=== PATIENT | female | born 1955 | race Caucasian/White ===

== ENCOUNTER 2017-02-15 08:28 | Emergency (ER) | payer OTHER ==
[2017-02-15 08:32] VITALS: BP 138/87; PULSE 78; TEMP 98.5; BMI 29.9
--- NOTE | 2017-02-15 09:12 | PDOC ---
History of Present Illness - History of Present Illness Initial Comments: 02/15/17 10:04 The patient is a 61 year old female, with a significant past medical history of hypertension, hyperlipidemia, NIDDM, migraines, and breast CA s/p lumpectomy and radiation therapy, who presents to the emergency department with intermittent dizziness, nausea, and lightheadedness since yesterday. She states she woke up from her sleep last night and felt the room spinning. The patient reports her dizziness is associated with nausea, but denies vomiting. She reports taking a zofran at home and denies nausea currently. She states her symptoms are exacerbated most when lying supine. She states she became very anxious after experiencing her symptoms, which she states only made it worse. She denies any recent ringing in her ears. The patient reports being seen in the ED last year for similar symptoms of dizziness, nausea, and lightheadedness. She reports seeing neurologist, Dr. Melgar, for her recurrent headaches a few years ago, but states she has not follow-up up since. She denies chest pain, shortness of breath, headache. She denies fever, chills, vomit, diarrhea and constipation. She denies dysuria, frequency, urgency and hematuria. She denies loss of appetite. She denies any vision changes, numbness/ tingling/weakness, headache Allergies: NKDA Social history: Denies toxic habits PCP - Dr. Mavis Ervin <Shreya Carlisle - Last Filed: 02/15/17 10:04> <Epifanio Armas - Last Filed: 02/15/17 18:12> - General Chief Complaint: Lightheaded Stated Complaint: DIZZINESS, NAUSEA Time Seen by Provider: 02/15/17 09:11 Past History <Shreya Carlisle - Last Filed: 02/15/17 10:04> - Past Medical History Diabetes: Yes (NIDDM) HTN: Yes Hypercholesterolemia: Yes - Surgical History Abdominal Surgery: Yes - Family Disease History Family Disease History: Heart Disease: Father - Immunization History Immunization Up to Date: Yes - Psycho/Social/Smoking Cessation Hx Anxiety: No Suicidal Ideation: No Smoking History: Never smoked Have you smoked in the past 12 months: No Hx Alcohol Use: No Drug/Substance Use Hx: No Substance Use Type: None <Epifanio Armas - Last Filed: 02/15/17 18:12> - Past Medical History Allergies/Adverse Reactions: Allergies Allergy/AdvReac Type Severity Reaction Status Date / Time No Known Allergies Allergy Verified 02/15/17 08:30 Home Medications: Ambulatory Orders Amlodipine/Valsartan [Exforge 10-320 mg Tablet] 1 tab PO DAILY 08/29/15 Empagliflozin [Jardiance] 25 mg PO DAILY 08/29/15 Metformin HCl [Glucophage -] 1,000 mg PO BID 08/29/15 Meclizine HCl 25 mg PO TID PRN #14 tablet 02/15/17 Meloxicam 0 mg PO DAILY 02/15/17 Ondansetron [Zofran Odt -] 4 mg GT QID PRN #20 tab.rapdis 02/15/17 Simvastatin [Zocor] 0 mg PO DAILY 02/15/17 Review of Systems - Review of Systems Able to Perform ROS?: Yes Comments:: 02/15/17 09:29 CONSTITUTIONAL: No reported: Fever, Chills, Diaphoresis, Generalized Weakness, Malaise, Loss of Appetite HEENT: No reported: Rhinorrhea, Nasal Congestion, Throat Pain, Throat Swelling, Difficulty Swallowing, Mouth Swelling, Ear Pain, Eye Pain, Visual Changes CARDIOVASCULAR: No reported: Chest Pain, Syncope, Palpitations, Irregular Heart Rate, Lightheadedness, Peripheral Edema RESPIRATORY: No reported: Cough, Shortness of Breath, SOB with Exertion, Orthopnea, Wheezing , Stridor, Hemoptysis GASTROINTESTINAL: (+) Nausea, No reported: Abdominal pain, Abdominal Distension, Vomiting, Diarrhea, Constipation, Melena, Hematochezia GENITOURINARY: No reported: Dysuria, Frequency, Urgency, Hesitancy, Flank Pain, Genital Pain MUSCULOSKELETAL: No reported: Myalgia, Arthralgia, Joint Swelling, Back pain, Neck Pain SKIN: No reported: Rash, Itching, Pallor HEMEATOLOGIC/IMMUNOLOGIC: No reported: Easy Bleeding, Easy Bruising, Lymphadenopathy, Frequent infections ENDOCRINE: No reported: Unexplained Weight Gain, Unexplained Weight Loss, Heat Intolerance , Cold Intolerance NEUROLOGIC: (+) Vertigo, Lightheadedness, No reported: Headache, Focal Weakness, Paresthesias, Unsteady Gait, Seizure, Mental Status Changes, Incontinence <Shreya Carlisle - Last Filed: 02/15/17 10:04> *Physical Exam - Vital Signs Last Vital Signs Temp Pulse Resp BP Pulse Ox 98.5 F 78 18 138/87 98 02/15/17 08:29 02/15/17 08:29 02/15/17 08:29 02/15/17 08:29 02/15/17 08:29 - Physical Exam Comments: 02/15/17 09:28 GENERAL: The patient is awake, alert, and fully oriented, Nontoxic - in no acute distress. HEAD: Normocephalic, atraumatic. EYES: extraocular movements intact, sclera anicteric, conjunctiva clear. ENT: Normal voice, Moist mucous membranes. NECK: Normal range of motion, supple LUNGS: Breath sounds equal, clear to auscultation bilaterally. No wheezes, no rhonchi, no rales. HEART: Regular rate and rhythm, without murmur, rub or gallop. ABDOMEN: Soft, nontender, normoactive bowel sounds. No guarding, no rebound.No CVA tenderness EXTREMITIES: Normal range of motion, no edema. No clubbing or cyanosis. No cords, erythema, or tenderness. PSYCH: Normal mood, normal affect. SKIN: Warm, Dry, normal turgor, NEURO: Mental status: The patient is oriented x3. Cranial nerves: Cranial nerves II through XII are intact Motor: The upper extremities are 5 over 5 in all muscle groups. The lower extremities are 5 over 5 in all muscle groups. No pronator drift. Sensation: Sensation is intact to light touch throughout. Neg romberg Cerebellar: Tgmzat-skjmem-bodf is normal in both upper extremities. Heel-knee- bazzi is normal in both lower extremities. Reflexes: 2+ and symmetric in the upper and lower extremities. Gait: Normal. Heel and toe walking are normal. Tandem gait is normal. <Shreya Carlisle - Last Filed: 02/15/17 10:04> - Vital Signs Last Vital Signs Temp Pulse Resp BP Pulse Ox 98.5 F 78 18 138/87 98 02/15/17 08:29 02/15/17 08:29 02/15/17 08:29 02/15/17 08:29 02/15/17 08:29 <Epifanio Armas - Last Filed: 02/15/17 18:12> Heart Score/ECG Review - ECG Impressions Comment:: 02/15/17 10:06 Twelve-lead EKG was performed and reviewed by me. There is normal sinus rhythm with a normal rate. rate of 82 The axis is normal. The intervals are normal. There are no ST or T wave abnormalities. <Epifanio Armas - Last Filed: 02/15/17 18:12> ED Treatment Course - LABORATORY CBC & Chemistry Diagram: 02/15/17 09:40 02/15/17 09:40 <Shreya Carlisle - Last Filed: 02/15/17 10:04> - LABORATORY CBC & Chemistry Diagram: 02/15/17 09:40 02/15/17 09:40 <Epifanio Armas - Last Filed: 02/15/17 18:12> Medical Decision Making - Medical Decision Making 02/15/17 09:23 61y F hx of breast ca s/p lumpetctomy,HTN, HLD, and NIDDM presents with complaint of intermittent dizziness/vertigo - typically when she is lying down associated with nausea, lasting for ~10 seconds at a time, w/o associated headache, vision changes, numbness/tinglign/weakness, cp, palpitations, abd pain , back pain, diarrhea/melena. on exam the pt has a normal exam including nonfocal neuro exam and no cerebellar findings suspect peripherial vertigo based on presentation, no signs of central vertigo will obtain blood work to r/o anemia, metabolic dernagement, ekg to scren for arrythmia will give fluids, yakov 02/15/17 11:00 pts labs unremarkable pt feeling improved no longer vertignious ambulating well w/o ataxia will d/c the pt with ENT fu - t states she had alittle ear pain a few days ago ? labrynthitis return precautions were discussed I discussed the physical exam findings, ancillary test results and final diagnoses with the patient. I answered all of the patient's questions. The patient was satisfied with the care received and felt comfortable with the discharge plan and treatment plan. The patient will call their primary care physician within 24 hours to arrange follow-up and will return to the Emergency Department with any new, persistent or worsening symptoms. <Epifanio Armas - Last Filed: 02/15/17 18:12> *DC/Admit/Observation/Transfer - Attestations Scribe Attestion: 02/15/17 09:29 Documentation prepared by Shreya Carlisle, acting as medical records field technician for Epifanio Armas MD, <Shreya Carlisle - Last Filed: 02/15/17 10:04> - Discharge Dispostion Admit: No <Epifanio Armas - Last Filed: 02/15/17 18:12> Diagnosis at time of Disposition: Vertigo - Discharge Dispostion Disposition: HOME Condition at time of disposition: Improved - Prescriptions Prescriptions: Meclizine HCl 25 mg PO TID PRN #14 tablet PRN Reason: Vertigo Ondansetron [Zofran Odt -] 4 mg GT QID PRN #20 tab.rapdis PRN Reason: Nausea - Referrals Referrals: Mavis Ervin MD [Primary Care Provider] - Best Brooks MD [Staff Physician] - - Patient Instructions Printed Discharge Instructions: DI for Vertigo Additional Instructions: Return to the emergency department immediately with ANY new, persistent or worsening symptoms incuding headache, persistent dizziness, vomiting, or other concerns. You MUST call and follow up with your doctor tomorrow for further evaluation of your symptoms. Results were discussed with you. Please make sure your doctor reviews the results of your emergency evaluation. Print Language: ETHIOPIAN
[2017-02-15] MEDS ORDERED: MECLIZINE HCL 25 MG TABLET (FP) PO ONE (09:13)
[2017-02-15] MEDS ORDERED: ONDANSETRON 4 MG/2 ML VIAL IVPB ONE (09:13)
[2017-02-15] MEDS ORDERED: SODIUM CHLORIDE 1,000 ML IV ONE (09:13)
[2017-02-15] MEDS ORDERED: MECLIZINE HCL 25 MG TABLET (FP) ONE (09:32)
[2017-02-15 09:57] LABS: EOSINOPHIL 2.7 % (0-4.5); MCH 30.8 pg (25.7-33.7); MCHC 34.2 g/dl (32.0-36.0); MEAN PLT VOLUME 8.5 fl (7.5-11.1); NEUTROPHILS 68.3 % (42.8-82.8); PLATELET COUNT 246 K/MM3 (134-434); RDW 12.4 % (11.6-15.6); WHITE BLOOD COUNT 8.7 K/mm3 (4.0-10.0)
[2017-02-15 10:27] LABS: ALBUMIN 3.9 g/dl (3.4-5.0); ALK PHOS 84 U/L (45-117); ANION GAP 9 (8-16); BILIRUBIN,TOTAL 0.5 mg/dL (0.2-1.0); CALCIUM 9.2 mg/dL (8.5-10.1); CO2 28 mmol/L (21-32); COCKROFT - GAULT 128.5115; CREATININE 0.6 mg/dL (0.55-1.02); GLUCOSE,RANDOM 224 mg/dL (74-106); SGOT/AST 11 U/L (15-37); SGPT/ALT 29 U/L (12-78); TOT PROT 7.3 g/dl (6.4-8.2)
--- NOTE | 2017-02-15 12:19 | EKG ---
Test Reason : Blood Pressure : / mmHG Vent. Rate : 082 BPM Atrial Rate : 082 BPM P-R Int : 140 ms QRS Dur : 088 ms QT Int : 388 ms P-R-T Axes : 030 008 026 degrees QTc Int : 453 ms NORMAL SINUS RHYTHM CANNOT RULE OUT ANTERIOR INFARCT (CITED ON OR BEFORE 15-FEB-2017) POOR R WAVE PROGRESSION ABNORMAL ECG WHEN COMPARED WITH ECG OF 10-MAR-2016 09:24, NO SIGNIFICANT CHANGE WAS FOUND Confirmed by JEFF WOOD MD ([id number]) on 02/15/2017 12:18:56 PM Referred By: Confirmed By:JEFF WOOD MD
== END 2017-02-15 11:12 | disposition home or self-care (01) ==
LOC: JER 08:28
PROC: 3E0337Z Introduction of Electrolytic and Water Balance Substance into Peripheral Vein, Percutaneous Approach (ICD-10-PCS; principal; 2017-02-15)
DX: R42 Dizziness and giddiness (principal); I10 Essential (primary) hypertension; E11.9 Type 2 diabetes mellitus without complications; Z79.84 Long term (current) use of oral hypoglycemic drugs; E78.00 Pure hypercholesterolemia, unspecified; Z85.3 Personal history of malignant neoplasm of breast
CPT/HCPCS: 36415; 80053; 85025; 93005; 93010; 96360; 99283-25

== ENCOUNTER 2017-04-22 01:39 | Emergency (ER) | payer OTHER ==
[2017-04-22 02:02] VITALS: BP 135/78; PULSE 88; TEMP 98.2; BMI 30.2
[2017-04-22] MEDS ORDERED: ONDANSETRON 4 MG/2 ML VIAL IVPUSH STA (02:33)
[2017-04-22] MEDS ORDERED: PANTOPRAZOLE SODIUM 40 MG in SODIUM CHLORIDE 100 ML IVPB ONE (02:33)
--- NOTE | 2017-04-22 02:33 | PDOC ---
History of Present Illness - General History Source: Patient Exam Limitations: No Limitations - History of Present Illness Initial Comments: 04/22/17 02:39 The patient is a 61-year-old female, with a significant past medical history of diabetes, who presents to the ED with abdominal pain, nausea, and vomiting. The pt developed this pain after eating at a [place] restaurant last night. Pts daughter also ate at the same restaurant and has some discomfort but not as bad as the pt. The patient denies any fever, chills, or diarrhea. The patient denies having any other symptoms. <Anali Galindo - Last Filed: 04/22/17 02:39> - General History Source: Patient <MarlenyJoão - Last Filed: 04/22/17 04:57> - General Chief Complaint: Pain Stated Complaint: ABDOMINAL PAIN Time Seen by Provider: 04/22/17 02:32 Past History <Anali Galindo - Last Filed: 04/22/17 02:39> - Past Medical History Diabetes: Yes (NIDDM) HTN: Yes Hypercholesterolemia: Yes - Surgical History Abdominal Surgery: Yes - Family Disease History Family Disease History: Heart Disease: Father - Immunization History Immunization Up to Date: Yes - Psycho/Social/Smoking Cessation Hx Anxiety: No Suicidal Ideation: No Smoking History: Unknown if ever smoked Have you smoked in the past 12 months: No Hx Alcohol Use: No Drug/Substance Use Hx: No Substance Use Type: None <João Farmer - Last Filed: 04/22/17 04:57> - Past Medical History Allergies/Adverse Reactions: Allergies Allergy/AdvReac Type Severity Reaction Status Date / Time No Known Allergies Allergy Verified 04/22/17 01:54 Home Medications: Ambulatory Orders Amlodipine/Valsartan [Exforge 10-320 mg Tablet] 1 tab PO DAILY 08/29/15 Empagliflozin [Jardiance] 25 mg PO DAILY 08/29/15 Metformin HCl [Glucophage -] 1,000 mg PO BID 08/29/15 Meclizine HCl 25 mg PO TID PRN #14 tablet 02/15/17 Meloxicam 0 mg PO DAILY 02/15/17 Ondansetron [Zofran Odt -] 4 mg GT QID PRN #20 tab.rapdis 02/15/17 Simvastatin [Zocor] 0 mg PO DAILY 02/15/17 Ondansetron [Zofran *Odt*] 4 mg SL TID #30 od.tablet 04/22/17 Review of Systems - Review of Systems Able to Perform ROS?: Yes Comments:: 04/22/17 02:39 CONSTITUTIONAL: Absent: fever, no chills, no fatigue EYES: Absent: visual changes ENT: Absent: ear pain, no sore throat CARDIOVASCULAR: Absent: chest pain, no palpitations RESPIRATORY: Absent: cough, no SOB GI: Present: abdominal pain, nausea, vomiting Absent: no constipation, no diarrhea GENITOURINARY: Absent: dysuria, no frequency, no hematuria MUSKULOSKELETAL: Absent: back pain, no arthralgia, no myalgia SKIN: Absent: rash NEURO: Absent: headache <Anali Galindo - Last Filed: 04/22/17 02:39> *Physical Exam - Vital Signs Last Vital Signs Temp Pulse Resp BP Pulse Ox 98.2 F 88 16 135/78 99 04/22/17 01:49 04/22/17 01:49 04/22/17 01:49 04/22/17 01:49 04/22/17 01:49 - Physical Exam Comments: 04/22/17 02:41 GENERAL: Well-appearing, well-nourished. +Moderate distress. HEENT: Normocephalic, atraumatic. PERRL, EOM intact. CARDIOVASCULAR: Normal S1, S2. Regular rate and rhythm. PULMONARY: Clear to auscultation bilaterally. ABDOMEN: Soft, non-distended, non-tender. EXTREMITIES: Normal ROM in all four extremities. No gross deformities. SKIN: Warm, dry. No rash NEUROLOGICAL: No focal neurological deficits. <Anali Galindo - Last Filed: 04/22/17 02:39> - Vital Signs Last Vital Signs Temp Pulse Resp BP Pulse Ox 98.2 F 88 16 135/78 99 04/22/17 01:49 04/22/17 01:49 04/22/17 01:49 04/22/17 01:49 04/22/17 01:49 <João Farmer - Last Filed: 04/22/17 04:57> ED Treatment Course - LABORATORY CBC & Chemistry Diagram: 04/22/17 02:42 04/22/17 02:42 <João Farmer - Last Filed: 04/22/17 04:57> Medical Decision Making - Medical Decision Making 04/22/17 04:57 Dr. Farmer: The scribe's documentation has been prepared under my direction and personally reviewed by me in its entirery. I confirm that the note above accurately reflects all work, treatment, procedures, and medical decision making performed by me. <João Farmer - Last Filed: 04/22/17 04:57> *DC/Admit/Observation/Transfer - Attestations Scribe Attestion: 04/22/17 02:42 Documentation prepared by Anali Galindo, acting as medical office technologist for João Farmer MD. <Anali Galindo - Last Filed: 04/22/17 02:39> - Discharge Dispostion Admit: No <João Farmer - Last Filed: 04/22/17 04:57> Diagnosis at time of Disposition: Nausea & vomiting Abdominal pain Qualifiers: Abdominal location: generalized Qualified Code(s): R10.84 - Generalized abdominal pain - Discharge Dispostion Disposition: HOME Condition at time of disposition: Stable - Patient Instructions Printed Discharge Instructions: DI for Abdominal Pain-Adult, DI for Nausea -- Adult, Nausea and Vomiting-Adult
[2017-04-22] MEDS ORDERED: SODIUM CHLORIDE 1,000 ML IV STA (02:34)
[2017-04-22] MEDS ORDERED: KETOROLAC TROMETHAMINE 30 MG/1 ML VIAL IVPUSH ONE (02:35)
[2017-04-22] MEDS ORDERED: PANTOPRAZOLE SODIUM 100 ML IVPB ONE (02:39)
[2017-04-22] MEDS ORDERED: KETOROLAC TROMETHAMINE 30 MG/1 ML VIAL ONE (02:40)
[2017-04-22] MEDS ORDERED: ONDANSETRON 4 MG/2 ML VIAL ONE (02:40)
[2017-04-22 02:44] LABS: BASOPHIL 0.8 % (0-2.0); EOSINOPHIL 2.1 % (0-4.5); MCH 30.4 pg (25.7-33.7); MCHC 33.5 g/dl (32.0-36.0); MEAN CELL VOLUME 90.9 fl (80-96); MEAN PLT VOLUME 8.9 fl (7.5-11.1); NEUTROPHILS 78.4 % (42.8-82.8); PLATELET COUNT 235 K/MM3 (134-434); RDW 12.7 % (11.6-15.6); WHITE BLOOD COUNT 15.4 K/mm3 (4.0-10.0)
[2017-04-22 03:16] LABS: ALK PHOS 87 U/L (45-117); AMYLASE 27 U/L (25-115); ANION GAP 11 (8-16); BILIRUBIN,TOTAL 0.4 mg/dL (0.2-1.0); CO2 28 mmol/L (21-32); CREATININE 0.6 mg/dL (0.55-1.02); GLUCOSE,RANDOM 293 mg/dL (74-106); MAGNESIUM 2.3 mg/dL (1.8-2.4); SGOT/AST 11 U/L (15-37); SGPT/ALT 31 U/L (12-78)
[2017-04-22 04:01] LABS: ACETONE SERUM NEGATIVE (NEGATIVE)
[2017-04-22 04:07] LABS: URINE APPEARANCE CLEAR; URINE BILIRUBIN NEGATIVE (NEGATIVE); URINE BLOOD NEGATIVE (NEGATIVE); URINE COLOR STRAW; URINE GLUCOSE (UA) 3+ (NEGATIVE); URINE KETONE 1+ (NEGATIVE); URINE LEUK ESTERASE NEGATIVE (NEGATIVE); URINE NITRITE NEGATIVE (NEGATIVE); URINE PROTEIN NEGATIVE (NEGATIVE); URINE UROBILINOGEN NEGATIVE E.U./dl (0.2-1.0)
== END 2017-04-22 05:03 | disposition home or self-care (01) ==
LOC: JER 01:39
PROC: 3E0337Z Introduction of Electrolytic and Water Balance Substance into Peripheral Vein, Percutaneous Approach (ICD-10-PCS; principal; 2017-04-22)
PROC: 3E033GC Introduction of Other Therapeutic Substance into Peripheral Vein, Percutaneous Approach (ICD-10-PCS; 2017-04-22)
PROC: 3E0333Z Introduction of Anti-inflammatory into Peripheral Vein, Percutaneous Approach (ICD-10-PCS; 2017-04-22)
PROC: 3E033GC Introduction of Other Therapeutic Substance into Peripheral Vein, Percutaneous Approach (ICD-10-PCS; 2017-04-22)
DX: R10.84 Generalized abdominal pain (principal); R11.2 Nausea with vomiting, unspecified; I10 Essential (primary) hypertension; E11.9 Type 2 diabetes mellitus without complications; Z79.84 Long term (current) use of oral hypoglycemic drugs; E78.00 Pure hypercholesterolemia, unspecified
CPT/HCPCS: 36415; 80053; 81003; 82009; 82150; 83690; 83735; 85025; 96361; 96365; 96375; 99282-25

== ENCOUNTER 2017-12-17 07:42 | Day surgery (SDC) | payer OTHER ==
[2017-12-11 13:59] VITALS: BMI 29.9
[2017-12-17] MEDS ORDERED: oxyCODONE HCL 5 MG TABLET PO PRN ×2 (11:32)
[2017-12-17] MEDS ORDERED: PROMETHAZINE HCL 25 MG/1 ML VIAL IVPUSH PRN (11:32)
--- NOTE | 2017-12-17 11:43 | OP ---
Operative Note - Note: Operative Date: 12/17/17 Pre-Operative Diagnosis: Right Breast Deformity after treatment of Right Breast CA Operation: Right Breast Reconstruction with Insertion of Implant, Insertion of Alloderm Sheet and Mastopexy. Implants: [place] MemoryGel Siltex Moderate-Plus Profile 400cc Post-Operative Diagnosis: Same as Pre-op Surgeon: Camron Mclean Anesthesia: General Operative Report Dictated: Yes
[2017-12-17] MEDS ORDERED: LACTATED RINGERS SOLUTION 1,000 ML IV SCH (11:45)
[2017-12-17] MEDS: ONDANSETRON 4 MG/2 ML VIAL IVPUSH PRN ×2 (12:15→16:05)
--- NOTE | 2017-12-17 13:29 | OP ---
DATE OF OPERATION: 12/17/2017 PREOPERATIVE DIAGNOSIS: Right breast deformity after treatment of right breast cancer. POSTOPERATIVE DIAGNOSIS: Right breast deformity after treatment of right breast cancer. PROCEDURE PERFORMED: Right breast reconstruction with insertion of implant and insertion of Alloderm sheath and mastopexy. SURGEON: Camron Carrillo MD ANESTHESIA: General with LMA. BRIEF HISTORY: The patient was marked in the standing position 1 day prior to surgery and is now on the operating room table, and these markings will be used as a guide for surgery. DESCRIPTION OF PROCEDURE: She is on the operating room table in supine position, and general anesthesia was administered by the anesthesiologist. The area of the chest was prepped and draped in usual sterile fashion. The inframammary incision was made as marked and carried down sharply through subcutaneous tissues. Hemostasis was achieved with the electrocautery. Dissection continued in the subpectoral plane and continued superiorly to the level of the 2nd rib. The implant pocket was further extended laterally and medially. The implant selected was a [place] MemoryGel Siltex Round Moderate Plus Profile Gel Implant 400 mL in size. Prior to placing the implant, the implant was soaked in a triple antibiotic solution. A sheet of contoured perforated Alloderm was trimmed to size and was sutured to the inferior edge of the pectoralis major muscle using an interrupted horizontal mattress suture tucking the edge of the AlloDerm under the pectoralis muscle. Once this suture line was placed, the implant was inserted without difficulty with the assistance of a Brooks Funnel. The implant position was confirmed to be correct, and the AlloDerm sheet was reflected over the lower pole of the implant and inset into the inframammary fold, again, using No. 2-0 Vicryl suture in interrupted fashion. The patient was moved into sitting position, and mastopexy markings were then adjusted now that the implant was inserted. The patient was returned to the supine position, and a 42-mm cookie cutter was used to outline a circular incision about the right nipple areolar complex. This incision was made with a No. 15 scalpel blade, and all other incisions were made as marked. The central portion was deepithelialized, and the mastopexy flaps were created medially, superiorly, and laterally. The central pedicle was shifted superiorly, and flaps were inset temporarily using 2-0 silk suture at mas points. The closure was then begun in layered fashion. Deep tissues were closed with No. 3-0 and 4-0 Biosyn suture in interrupted buried fashion and a deep dermal layer of 4-0 V-Lock 90 suture was used for skin clips. The wounds were further secured with Steri-Strips, and sterile dressings were applied consisting of Kerlix and ABD pads, which were secured with a surgical bra. The patient was then awoken from anesthesia without any difficulty and taken from the operating room to the recovery room in satisfactory condition having tolerated the procedure well. CAMRON CARRILLO M.D. [id number]
[2017-12-17] MEDS ORDERED: PROMETHAZINE HCL 25 MG/1 ML VIAL IVPB PRN (16:03)
[2017-12-17] MEDS ORDERED: FAMOTIDINE 20 MG PREMIXED IVPB IVPB ONE (16:50)
[2017-12-17] MEDS ORDERED: ACETAMINOPHEN 325 MG TABLET (FP) ONE (17:17)
[2017-12-17] MEDS: ACETAMINOPHEN 325 MG TABLET (FP) PO ONE ×2 (17:25→17:30)
[2017-12-17] MEDS ORDERED: FAMOTIDINE 20 MG/50 ML IVPB 20 MG/50 ML MG IVPB ONE (19:00)
[2017-12-17 20:10] VITALS: BP 120/70; PULSE 85; TEMP 97.9
--- NOTE | 2017-12-22 13:50 | PATH ---
Surgical Pathology Report Patient Name: SHEFALI BLACK [facility]. Rec. #: [id number] /Age/Gender: 1955 (Age: 62) / F Account: [id number] Location: [facility] AMBULATORY Taken: 12/17/2017 Received: 12/17/2017 Reported: 12/22/2017 Physicians: Camron Mclean M.D. Specimen(s) Received RIGHT BREAST SKIN Clinical History None given Final Diagnosis SKIN, RIGHT BREAST, EXCISION: SKIN WITH NO PATHOLOGIC FINDINGS. Electronically Signed Ramonita Hemphill M.D. Gross Description Received in formalin, labeled "right breast skin," is an 8.5 x 3.7 x 0.2 cm aggregate of multiple aguilera, irregular, unoriented portions of skin. The epidermal surfaces are unremarkable. Sql Report Developer sections are submitted in one cassette. /12/18/2017 [facility]12/18/2017
== END 2017-12-17 18:05 | disposition home or self-care (01) ==
LOC: FASU 07:42
PROVIDERS: ATTEND Plastic Surgery
PROC: 0HST0ZZ Reposition Right Breast, Open Approach (ICD-10-PCS; 2017-12-17)
PROC: 0HSWXZZ Reposition Right Nipple, External Approach (ICD-10-PCS; 2017-12-17)
PROC: 0HRT0JZ Replacement of Right Breast with Synthetic Substitute, Open Approach (ICD-10-PCS; principal; 2017-12-17 09:38)
DX: N65.0 Deformity of reconstructed breast (principal); Z85.3 Personal history of malignant neoplasm of breast
CPT/HCPCS: 82962; 88302-TC; 94760

== ENCOUNTER 2018-02-11 06:24 | Day surgery (SDC) | payer OTHER ==
[2018-02-10 09:04] VITALS: BMI 29.7
[2018-02-12 06:50] VITALS: TEMP 98.8
[2018-02-12 10:29] VITALS: BP 152/82; PULSE 83
== END 2018-02-12 11:05 | disposition home or self-care (01) ==
LOC: JASU-SURG 06:24 → JASUSAT 06:24 → J8W 17:15 → JASUSAT 02-12 11:05
PROVIDERS: ATTEND Plastic Surgery
PROC: 0H0U0ZZ Alteration of Left Breast, Open Approach (ICD-10-PCS; principal; 2018-02-11)
PROC: [UNRECOGNIZED PROCEDURE] (2018-02-11)
DX: N65.1 Disproportion of reconstructed breast (principal); Z85.3 Personal history of malignant neoplasm of breast; I10 Essential (primary) hypertension; E11.9 Type 2 diabetes mellitus without complications
CPT/HCPCS: 82962; 94760

== ENCOUNTER 2018-11-09 07:37 | Day surgery (SDC) | payer OTHER ==
[2018-11-08 16:18] VITALS: BMI 30.7
[2018-11-09] MEDS ORDERED: fentaNYL CITRATE 250 MCG/5 ML VIAL ONE (08:37)
[2018-11-09] MEDS ORDERED: PROPOFOL 20 ML ONE ×2 (08:37→09:34)
[2018-11-09] MEDS ORDERED: ROCURONIUM BROMIDE 50 MG/5 ML VIAL ONE (08:37)
[2018-11-09] MEDS ORDERED: LIDOCAINE HCL/PF 2% SDV 5ML VIAL ONE (08:37)
[2018-11-09] MEDS ORDERED: MIDAZOLAM HCL 2 MG/2 ML SINGLE DOSE VIAL ONE (08:37)
[2018-11-09] MEDS ORDERED: SCOPOLAMINE HYDROBROMIDE 1 PATCH PATCH.TD72 ONE (08:41)
[2018-11-09] MEDS ORDERED: DESFLURANE GAS 240 ML BOTTLE IH ONE (08:41)
[2018-11-09] MEDS ORDERED: ceFAZolin SODIUM 1 GM VIAL ONE (09:22)
[2018-11-09] MEDS ORDERED: ceFAZolin SODIUM 1 GM VIAL IVPB ONE (09:24)
[2018-11-09] MEDS ORDERED: DEXAMETHASONE SOD PHOSPHATE 4 MG/1 ML VIAL ONE (09:41)
[2018-11-09] MEDS ORDERED: NEOSTIGMINE METHYLSULFATE 0.5 MG/ML - 10 ML MDV ONE (10:14)
[2018-11-09] MEDS ORDERED: GLYCOPYRROLATE 0.2 MG/1 ML VIAL ONE (10:14)
[2018-11-09] MEDS ORDERED: IBUPROFEN 800 MG/8 ML IJ IVPB PRN (11:03)
[2018-11-09] MEDS ORDERED: ONDANSETRON 4 MG/2 ML VIAL IVPUSH PRN (11:03)
[2018-11-09] MEDS ORDERED: oxyCODONE HCL 5 MG TABLET PO PRN (11:03)
[2018-11-09] MEDS ORDERED: LACTATED RINGERS SOLUTION 1,000 ML IV SCH (11:15)
[2018-11-09] MEDS ORDERED: IBUPROFEN 800 MG/8 ML IJ IVPB ONE (11:21)
--- NOTE | 2018-11-09 11:28 | OP ---
Operative Note - Note: Operative Date: 11/09/18 Pre-Operative Diagnosis: Breast Asymmetry after Breast Reconstruction. Operation: Right Breast Reconstruction Revision, Removal of Implant and Replacement with Larger Implant Implants: [place] Siltex Round Moderate-Plus Profile Gel 600cc Surgeon: Camron Mclean Anesthesia: General Operative Report Dictated: Yes
--- NOTE | 2018-11-09 12:33 | OP ---
DATE OF OPERATION: 11/09/2018 PREOPERATIVE DIAGNOSIS: Breast asymmetry after reconstruction. POSTOPERATIVE DIAGNOSIS: Breast asymmetry after reconstruction. PROCEDURE PERFORMED: Right breast reconstruction revision with removal of implant and replacement with larger implant and manipulation of implant pocket. SURGEON: Camron Carrillo MD ANESTHESIA: General endotracheal tube. DESCRIPTION OF PROCEDURE: The patient was on the operating table in the supine position, and general anesthesia was administered by the anesthesiologist. The area was prepped and draped in the usual sterile fashion. The patient had been marked in the standing position prior to surgery and these markings are now used as a guide for the procedure. The previous inframammary incision was reopened over the old scar. The dissection was carried down through subcutaneous tissues using electrocautery. The implant was identified and removed without difficulty. The implant pocket was explored using the fiberoptic lighted retractor and the dimensions of the pocket were increased in all dimensions especially laterally and superolaterally. The previously placed AlloDerm, which was restricting the pockets slightly, was scored in several places both above and below the skin incision. The pocket was then irrigated with dilute Betadine solution, and a new implant was placed. The implant selected was a [place] Siltex Round Moderate Plus Profile Gel-Filled implant 600 mL in size. This was inserted with the assistance of a Brooks Funnel. Once inserted, the implant was manipulated into correctly position, and closure was begun. Deep tissues were closed with No. 3-0 and 4-0 Biosyn sutures in interrupted buried fashion, skin was closed with a deep dermal layer of 4-0 V-Loc 90 suture. The wound was further secured with Steri-Strips, and the patient was awoken from anesthesia without any difficulty. A sterile dressing was applied and secured with a surgical bra. Patient was then taken from the operating room to the recovery room in satisfactory condition having tolerated the procedure well. CAMRON CARRILLO M.D. [id number]
[2018-11-09] MEDS ORDERED: INSULIN REGULAR HUMAN 100 UNITS/ML *VIAL SQ ONE (12:46)
[2018-11-09 13:25] VITALS: TEMP 97.9
[2018-11-09 16:14] VITALS: BP 120/70; PULSE 89
--- NOTE | 2018-11-10 18:57 | PATH ---
Surgical Pathology Report Patient Name: SHEFALI BLACK [facility]. Rec. #: [id number] /Age/Gender: 1955 (Age: 63) / F Account: [id number] Location: [facility] SURGICAL Taken: 11/09/2018 Received: 11/09/2018 Reported: 11/10/2018 Physicians: Camron Mclean M.D. Specimen(s) Received BREAST IMPLANT Clinical History Right breast cancer Final Diagnosis BREAST, RIGHT, IMPLANT, EXCHANGE: BREAST IMPLANT. MACROSCOPIC DIAGNOSIS. Electronically Signed Joana Jeronimo M.D. Gross Description Received fresh labeled "right breast," is a 13.5 cm in diameter x 3 cm in depth clear, rubbery, intact breast implant. No soft tissue is present. No sections are submitted, gross only. /11/09/2018 [place]11/09/2018
== END 2018-11-09 16:10 | disposition home or self-care (01) ==
LOC: JASU-SURG 07:37
PROVIDERS: ATTEND Plastic Surgery
PROC: 0HWT0JZ Revision of Synthetic Substitute in Right Breast, Open Approach (ICD-10-PCS; principal; 2018-11-09 09:00)
DX: N65.1 Disproportion of reconstructed breast (principal); I10 Essential (primary) hypertension; E11.9 Type 2 diabetes mellitus without complications
CPT/HCPCS: 82962; 88300-TC; 94010; 94760

== ENCOUNTER 2018-12-19 08:33 | Emergency (ER) | payer OTHER ==
[2018-12-19 08:36] VITALS: TEMP 98.7; BMI 29.9
[2018-12-19] MEDS ORDERED: SODIUM CHLORIDE 1,000 ML IV STA ×2 (09:18→09:58)
[2018-12-19] MEDS ORDERED: ONDANSETRON 4 MG/2 ML VIAL IVPUSH ONE (09:19)
[2018-12-19] MEDS ORDERED: FAMOTIDINE 20 MG/50 ML IVPB 20 MG/50 ML MG IVPB ONE ×2 (09:19→09:24)
[2018-12-19] MEDS ORDERED: ONDANSETRON 4 MG/2 ML VIAL ONE (09:24)
--- NOTE | 2018-12-19 09:28 | PDOC ---
Attending Attestation - Resident Resident Name: Pedro Pablo Kay - ED Attending Attestation I have performed the following: I have examined & evaluated the patient, The case was reviewed & discussed with the resident, I agree w/resident's findings & plan, Exceptions are as noted - HPI HPI: 12/19/18 09:49 63 year old female hx HTN, DM presents with palpitations. Pt reports for the last several days, particularly 3 days ago, pt endorsed multiple episodes of nausea and vomiting. Had some abdominal cramping then. Most of those symptoms resolved now but with intermittent nausea. Has had decreased appetite and not drinking fluids. In addition, her glucose has been uncontrolled with sugars in 300s despite taking her medications. No fevers, chills. Denies chest pain, shortness of breath. Has been endorsing intermittent palpitations throughout. Because of the palpitations, pt came to the ED. - Physicial Exam PE: 12/19/18 09:58 GENERAL: Awake, alert, and fully oriented, in no acute distress HEAD: No signs of trauma EYES: PERRLA, EOMI, sclera anicteric, conjunctiva clear ENT: Auricles normal inspection, hearing grossly normal, nares patent NECK: Normal ROM, supple LUNGS: Breath sounds equal, clear to auscultation bilaterally. No wheezes, and no crackles HEART: Regular rate and rhythm, normal S1 and S2, no murmurs, rubs or gallops ABDOMEN: Soft, nontender. No guarding, no rebound. No masses EXTREMITIES: Normal range of motion, no edema. No clubbing or cyanosis. No cords, erythema, or tenderness NEUROLOGICAL: Cranial nerves II through XII grossly intact. Normal speech SKIN: Warm, Dry, normal turgor, no rashes or lesions noted. - Medical Decision Making 12/19/18 09:58 Vital Signs Temp Pulse Resp BP Pulse Ox 98.7 F 98 H 18 138/81 98 12/19/18 08:33 12/19/18 08:33 12/19/18 08:33 12/19/18 08:33 12/19/18 08:33 The patient's EKG is normal and without any evidence of irregularities. The patient's palpitations may be secondary to dehydration and hyperglycemia. We'll give patient intravenous fluids. However, we'll check electrolytes, TSH, troponin and labs. If the patient feels better and the workup is unrevealing, the patient is also for discharge with outpatient follow-up. 12/19/18 10:13 CBC, BMP 12/19/18 09:29 12/19/18 09:29 CMP Sodium 136 mmol/L (136-145) 12/19/18 09: Potassium 3.7 mmol/L (3.5-5.1) 12/19/18 09: Chloride 105 mmol/L (98-107) 12/19/18 09: Carbon Dioxide 24 mmol/L (21-32) 12/19/18: Anion Gap 8 MMOL/L (8-16) 12/19/18: BUN 11 mg/dL (7-18) 12/19/18: Creatinine 0.5 mg/dL (0.55-1.3) L 12/19/18: Creat Clearance w eGFR > 60 (>60) 12/19/18: Random Glucose 190 mg/dL (74-106) H 12/19/18: Calcium 8.4 mg/dL (8.5-10.1) L 12/19/18: Magnesium 2.0 mg/dL (1.8-2.4) 12/19/18: Total Bilirubin 0.5 mg/dL (0.2-1) 12/19/18: AST 21 U/L (15-37) 12/19/18 09: ALT 47 U/L (13-61) 12/19/18: Alkaline Phosphatase 91 U/L (45-117) 12/19/18: Creatine Kinase 29 U/L (26-192) 12/19/18: Troponin I < 0.02 ng/ml (0.00-0.05) 12/19/18: Total Protein 6.6 g/dl (6.4-8.2) 12/19/18: Albumin 3.4 g/dl (3.4-5.0) 12/19/18: Lipase 125 U/L (73-393) 12/19/18: TSH 1.32 uIU/ml (0.358-3.74) 12/19/18:29 Labs reviewed. No acute findings. Chest xray reviewed by me, pending official radiology read. No acute findings. Heart Score/ECG Review #1 ECG reviewed & interpreted by me at: 08:40 12/19/18 09:28 NSR 97, no std/misael, normal axis, normal intervals, QTC 462 msec, TWI III
[2018-12-19 09:39] LABS: BASO % 0.7 % (0-2.0); EOS % 2.5 % (0-4.5); HEMATOCRIT 43.2 % (32.4-45.2); HEMOGLOBIN 15.1 GM/dL (10.7-15.3); MCH 31.8 pg (25.7-33.7); MEAN CELL VOLUME 90.8 fl (80-96); MEAN PLT VOLUME 8.5 fl (7.5-11.1); MONO % 11.3 % (3.8-10.2); NEUT % 73.5 % (42.8-82.8); PLATELET COUNT 243 K/MM3 (134-434); RBC 4.76 M/mm3 (3.60-5.2); RDW 13.1 % (11.6-15.6); WHITE BLOOD COUNT 8.7 K/mm3 (4.0-10.0)
--- NOTE | 2018-12-19 09:41 | PDOC ---
History of Present Illness - General Chief Complaint: Palpitations Stated Complaint: PALPITATIONS Time Seen by Provider: 12/19/18 09:12 History Source: Patient Exam Limitations: No Limitations - History of Present Illness Initial Comments: 12/19/18 09:34 Patient is a 63F with history of HTN, DM here today complaining of palpitations that started last night. Patient statees that three day sago she started vomiting multiple times. Vomiting ended two days ago, but patient endorses decreased po intake. Denies abdominal pain. Denies fevers, chills, blood/bile in vomit. Denies chest pain, stating that she only has a sensation of palpations that started last night. Formerly on insulin, now on po medications for DM. States that her mouth feels dry. Denies dysuria. Past History - Past Medical History Allergies/Adverse Reactions: Allergies Allergy/AdvReac Type Severity Reaction Status Date / Time No Known Allergies Allergy Verified 12/19/18 08:36 Home Medications: Ambulatory Orders Empagliflozin [Jardiance] 25 mg PO DAILY 08/29/15 Sitagliptin Phos/Metformin HCl [Janumet 50-1,000 mg Tablet] 1 tab PO BID Amlodipine Besylate 10 mg PO DAILY 11/08/18 Clonazepam 0.5 mg PO BID 11/08/18 Losartan Potassium 100 mg PO DAILY 11/08/18 Anemia: No Asthma: No Cancer: Yes (breast ca right 1999) Cardiac Disorders: Yes (palpitations) CVA: No COPD: No CHF: No Dementia: No Diabetes: Yes (NIDDM) GI Disorders: No Disorders: No HTN: Yes Hypercholesterolemia: Yes Liver Disease: No Seizures: No Thyroid Disease: No - Surgical History Abdominal Surgery: No Appendectomy: No Cardiac Surgery: No Cholecystectomy: No Lung Surgery: No Neurologic Surgery: No - Family Disease History Family Disease History: Heart Disease: Father - Immunization History Immunization Up to Date: Yes - Suicide/Smoking/Psychosocial Hx Smoking History: Never smoked Have you smoked in the past 12 months: No Hx Alcohol Use: No Drug/Substance Use Hx: No Substance Use Type: None Hx Substance Use Treatment: No Review of Systems - Review of Systems Comments:: 12/19/18 09:38 GENERAL/CONSTITUTIONAL: No fever or chills. No weakness. HEAD, EYES, EARS, NOSE AND THROAT: No change in vision. No sore throat. CARDIOVASCULAR: No chest pain or shortness of breath. +palpitations RESPIRATORY: No cough, wheezing, or hemoptysis. GASTROINTESTINAL: +nausea, +vomiting, no diarrhea or constipation. GENITOURINARY: No dysuria, frequency, or change in urination. MUSCULOSKELETAL: No joint or muscle swelling or pain. No neck or back pain. SKIN: No rash NEUROLOGIC: No headache, vertigo, loss of consciousness, or change in strength/ sensation. ENDOCRINE: No increased thirst. No abnormal weight change HEMATOLOGIC/LYMPHATIC: No anemia, easy bleeding, or history of blood clots. ALLERGIC/IMMUNOLOGIC: No hives or skin allergy. *Physical Exam - Vital Signs Last Vital Signs Temp Pulse Resp BP Pulse Ox 98.7 F 98 H 18 138/81 98 12/19/18 08:33 12/19/18 08:33 12/19/18 08:33 12/19/18 08:33 12/19/18 08:33 - Physical Exam Comments: 12/19/18 09:41 GENERAL: Awake, alert, and fully oriented, in no acute distress HEAD: No signs of trauma, normocephalic, atraumatic EYES: PERRLA, EOMI, sclera anicteric, conjunctiva clear ENT: Auricles normal inspection, hearing grossly normal, nares patent, oropharynx clear without exudates. Dry mucosa NECK: Normal ROM, supple, no lymphadenopathy, JVD, or masses LUNGS: No distress, speaks full sentences, clear to auscultation bilaterally HEART: Regular rate and rhythm, normal S1 and S2, no murmurs, rubs or gallops, peripheral pulses normal and equal bilaterally. ABDOMEN: Soft, nontender, normoactive bowel sounds. No guarding, no rebound. No masses EXTREMITIES: Normal inspection, Normal range of motion, no edema. No clubbing or cyanosis. NEUROLOGICAL: Cranial nerves II through XII grossly intact. Normal speech, normal gait, no focal sensorimotor deficits SKIN: Warm, Dry, normal turgor, no rashes or lesions noted. Moderate Sedation - Procedure Monitoring Vital Signs: Procedure Monitoring Vital Signs Temperature 98.7 F 12/19/18 08:33 Pulse Rate 98 H 12/19/18 08:33 Respiratory Rate 18 12/19/18 08:33 Blood Pressure 138/81 12/19/18 08:33 O2 Sat by Pulse Oximetry (%) 98 02/24/19 08:33 ED Treatment Course - LABORATORY CBC & Chemistry Diagram: 12/19/18 09:29 12/19/18 09:29 - RADIOLOGY Radiology Studies Ordered: Category Date Time Status CHEST PA & LAT [RAD] Stat Radiology 12/19/18 09:18 Ordered - Medications Given in the ED: ED Medications Discontinued Medications Generic Name Dose Route Start Last Admin Trade Name Tigist PRN Reason Stop Dose Admin Ondansetron HCl 4 mg 12/19/18 09:19 12/19/18 09:30 Zofran Injection IVPUSH 12/19/18 09:20 4 mg ONCE ONE Administration Medical Decision Making - Medical Decision Making 12/19/18 09:41 Patient is 63F with history of htn and dm here today with palpitations after two days of vomiting. Vitals normal and stable. EKG shows NSR with rate of 97. No st elevations/depressions, normal axis, normal intervals. Suspect patient has palpitations 2/2 dehydration, will rule out acs. Do not suspect pe or dissection at this time. EKG normal, do not suspect arrhythmia. 12/19/18 10:19 CBC, CMP, Lipase, Trop normal. CXR clear. Will reassess, likely discharge. 12/19/18 11:06 Patient reassessed, feeling better, asking to go home. Will discharge with return precautions and cards follow up. *DC/Admit/Observation/Transfer Diagnosis at time of Disposition: Palpitations - Discharge Dispostion Disposition: HOME Condition at time of disposition: Good Decision to Admit order: No - Referrals Referrals: Mavis Ervin MD [Primary Care Provider] - Davi Roberts MD [Staff Physician] - - Patient Instructions Printed Discharge Instructions: DI for Palpitations Additional Instructions: Please follow up with the nursing assoc below this week. Please return if you have any new, worsening or concerning symptoms, especially chest pain, shortness of breath and vomiting. - Post Discharge Activity
[2018-12-19 09:51] LABS: INR 0.98 (0.83-1.09); PROTHROMBIN TIME (PATIENT) 11.6 SEC (9.7-13.0)
[2018-12-19 10:12] LABS: ALBUMIN 3.4 g/dl (3.4-5.0); ALK PHOS 91 U/L (45-117); ANION GAP 8 MMOL/L (8-16); BILIRUBIN,TOTAL 0.5 mg/dL (0.2-1); BLOOD UREA NITROGEN 11 mg/dL (7-18); CALCIUM 8.4 mg/dL (8.5-10.1); CHLORIDE 105 mmol/L (98-107); CO2 24 mmol/L (21-32); CREATININE 0.5 mg/dL (0.55-1.3); GLUCOSE,RANDOM 190 mg/dL (74-106); LIPASE 125 U/L (73-393); POTASSIUM 3.7 mmol/L (3.5-5.1); SGOT/AST 21 U/L (15-37); SGPT/ALT 47 U/L (13-61); SODIUM 136 mmol/L (136-145); TOT PROT 6.6 g/dl (6.4-8.2)
[2018-12-19 10:34] LABS: URINE APPEARANCE CLEAR; URINE BILIRUBIN NEGATIVE (<2.0 mg/dL); URINE COLOR LTYELLOW; URINE GLUCOSE (UA) 3+ (NEGATIVE); URINE KETONE 1+ (NEGATIVE); URINE LEUK ESTERASE NEGATIVE (NEGATIVE); URINE NITRITE NEGATIVE (NEGATIVE); URINE PROTEIN NEGATIVE (NEGATIVE); URINE UROBILINOGEN NEGATIVE mg/dL (0.2-1.0)
[2018-12-19 11:23] VITALS: BP 141/84; PULSE 95
--- NOTE | 2018-12-19 22:04 | EKG ---
Test Reason : Blood Pressure : / mmHG Vent. Rate : 097 BPM Atrial Rate : 097 BPM P-R Int : 142 ms QRS Dur : 094 ms QT Int : 364 ms P-R-T Axes : 040 017 030 degrees QTc Int : 462 ms NORMAL SINUS RHYTHM NORMAL ECG WHEN COMPARED WITH ECG OF 15-FEB-2017 09:16, NO SIGNIFICANT CHANGE WAS FOUND Confirmed by DONNY CASEY MD ([id number]) on 12/19/2018 10:04:19 PM Referred By: Confirmed By:DONNY CASEY MD
== END 2018-12-19 11:23 | disposition home or self-care (01) ==
LOC: JER 08:33
PROC: 3E0337Z Introduction of Electrolytic and Water Balance Substance into Peripheral Vein, Percutaneous Approach (ICD-10-PCS; principal; 2018-12-19)
PROC: 3E033GC Introduction of Other Therapeutic Substance into Peripheral Vein, Percutaneous Approach (ICD-10-PCS; 2018-12-19)
PROC: 3E033GC Introduction of Other Therapeutic Substance into Peripheral Vein, Percutaneous Approach (ICD-10-PCS; 2018-12-19)
DX: R00.2 Palpitations (principal); I10 Essential (primary) hypertension; E11.9 Type 2 diabetes mellitus without complications; Z79.84 Long term (current) use of oral hypoglycemic drugs
CPT/HCPCS: 36415; 71046-TC-FY; 80053; 81003; 82550; 83690; 83735; 84443; 84484; 85025; 85610; 93005; 93010; 96361; 96365; 96375; 99284-25; J7030

== ENCOUNTER 2019-05-17 06:36 | Day surgery (SDC) | payer OTHER ==
[2019-05-11 17:59] VITALS: BMI 25.9
[2019-05-17] MEDS ORDERED: PROPOFOL 20 ML ONE ×10 (07:25→09:32)
[2019-05-17] MEDS ORDERED: MIDAZOLAM HCL 2 MG/2 ML SINGLE DOSE VIAL ONE ×2 (07:25→08:08)
[2019-05-17] MEDS ORDERED: SCOPOLAMINE HYDROBROMIDE 1 PATCH PATCH.TD72 ONE (07:49)
[2019-05-17] MEDS ORDERED: HALOPERIDOL LACTATE 5 MG/ML ONE (07:49)
[2019-05-17] MEDS ORDERED: LIDOCAINE HCL 2% 100 MG/5 ML DISP.SYRIN ONE (08:11)
[2019-05-17] MEDS ORDERED: DEXAMETHASONE SOD PHOSPHATE 4 MG/1 ML VIAL ONE (08:19)
[2019-05-17] MEDS ORDERED: ONDANSETRON 4 MG/2 ML VIAL ONE ×2 (08:19→08:31)
[2019-05-17] MEDS ORDERED: KETOROLAC TROMETHAMINE 30 MG/1 ML VIAL ONE (08:28)
[2019-05-17] MEDS ORDERED: ACETAMINOPHEN INJECTION 100 ML IVPB ONE (08:32)
[2019-05-17] MEDS ORDERED: oxyCODONE HCL 5 MG TABLET PO PRN (10:37)
[2019-05-17] MEDS ORDERED: ONDANSETRON *ODT* 4 MG TABLET SL PRN (10:38)
--- NOTE | 2019-05-17 10:44 | OP ---
Operative Note - Note: Operative Date: 05/17/19 Pre-Operative Diagnosis: Breast Asymmetry after Post-Mastectomy Reconstruction Operation: Left Breast Reconstruction Revision. Plascement of Submuscular Breast Prosthesis with Left Breast Reduction ad Mastopexy Implants: Allergan Natrelle Inspira SSF 240cc Smooth Round Gel Implant. Post-Operative Diagnosis: Same as Pre-op Surgeon: Camron Mclean Anesthesia: General Specimens Removed: Breast Tissue Left Breast Operative Report Dictated: Yes
[2019-05-17 16:29] VITALS: BP 109/69; PULSE 72; TEMP 97.7
--- NOTE | 2019-05-18 14:18 | OP ---
DATE OF OPERATION: 05/17/2019 AGE: 63 SEX: Female PREOPERATIVE DIAGNOSIS: Breast asymmetry after mastectomy reconstruction. SURGEON: Camron Carrillo MD ANESTHESIA: General via LMA. PROCEDURE: The patient was on the operating table in supine position, and general anesthesia was administered by the anesthesiologist. The area of the chest was prepped and draped in the usual sterile fashion. The left breast had been marked with the patient in the standing position prior to surgery and these markings were now used as a guide for surgery. The inframammary incision was made first for the purpose of placing the implant. The implant selected was a NatSolarReservee Inspira soft touch implant style SSF, 240 mL in size. The incision was carried down through subcutaneous tissues using electrocautery and the pectoralis major muscle edge was identified. The subpectoral plane was then developed with the assistance of a fiberoptic lighted retractor. The implant was then placed without difficulty with the assistance of a Brooks funnel. The deep tissues were then closed over the lower pole of the implant and the procedure continued. The mastopexy incisions were then reevaluated and adjusted now that the implant was in place. These incisions were then made, including a an intra-areolar incision 48 mm in diameter, which was first marked with a [employer] cutter. These incisions were carried down to the deep dermis and the area within the incisions was de-epithelialized. An additional breast reduction was performed, removing tissue from the lower pole and of lateral medial breast and this tissue was removed as specimen. The lateral, medial, and superior flaps were then developed and undermined and a vertical pillar was reapproximated using 3-0 Biosyn suture in continuous [id number] fashion. The flaps were then approximated at mas points using 2-0 silk suture and closure was begun. Deep tissues were closed with number 3-0 and 4-0 Biosyn suture in interrupted buried fashion and a 3-0 V-Loc 90 suture was placed in continuous fashion in the deep dermal layer for skin closure. Several 5-0 nylon sutures were placed as well, as the previously placed silks were removed. A good contour was appreciated on the operating table similar to the contralateral side, although because of the contralateral radiation in the past, perfect symmetry is not possible. Sterile dressings were then applied, consisting of Kerlix gauze and Combine pads, which were secured with a surgical bra. The patient was then awoken from anesthesia without any difficulty and taken from the operating room to the recovery room in satisfactory condition, having tolerated the procedure well. CAMRON CARRILLO M.D. /[id number]
--- NOTE | 2019-05-23 12:46 | PATH ---
Surgical Pathology Report Patient Name: SHEFALI BLACK [facility]. Rec. #: [id number] /Age/Gender: 1955 (Age: 63) / F Account: [id number] Location: [facility] AMBULATORY Taken: 05/17/2019 Received: 05/17/2019 Reported: 05/23/2019 Physicians: Camron Mclean M.D. Specimen(s) Received LEFT BREAST TISSUE Clinical History Left breast asymmetry after reconstruction Final Diagnosis BREAST TISSUE, LEFT, REDUCTION & REVISION: BENIGN BREAST TISSUE SHOWING FIBROSIS. SKIN WITH SCAR. Electronically Signed Ramonita Hemphill M.D. Gross Description Received in formalin labeled "left breast tissue," is a 65 g, 19.5 x 1.8 x 4.0 cm aguilera, elongated, unoriented portion of skin with attached underlying yellow, lobulated adipose tissue. The epidermal surface displays a central, linear, well healed scar. Sectioning reveals minimal fibrous tissue. There are 2 additional portions of skin separately received within the same container measuring 9.0 x 3.0 cm in aggregate. The epidermal surfaces are unremarkable. Returns Processor sections are submitted in one cassette. /05/19/2019 saudi05/19/2019
== END 2019-05-17 16:15 | disposition home or self-care (01) ==
LOC: FASU 06:36
PROVIDERS: ATTEND Plastic Surgery
PROC: 0HRU0JZ Replacement of Left Breast with Synthetic Substitute, Open Approach (ICD-10-PCS; 2019-05-17)
PROC: [UNRECOGNIZED PROCEDURE] (2019-05-17)
PROC: 0HBU0ZZ Excision of Left Breast, Open Approach (ICD-10-PCS; principal; 2019-05-17 08:34)
DX: N65.1 Disproportion of reconstructed breast (principal); Z90.12 Acquired absence of left breast and nipple
CPT/HCPCS: 82962; 94760; J0131

== ENCOUNTER 2020-05-06 21:56 | Emergency (ER) | payer OTHER ==
[2020-05-06 22:01] VITALS: BP 157/82; PULSE 99; TEMP 98.4; BMI 29.1
--- NOTE | 2020-05-06 22:52 | PDOC ---
History of Present Illness - General Chief Complaint: Ingestion Stated Complaint: MED ERROR/TOOK DOG MEDS Time Seen by Provider: 05/06/20 22:27 - History of Present Illness Initial Comments: Mira Bustamante is a 64 y/o female with PMH significant for HTN, DM, anxiety, presenting today after accidentally swallowing 16 mg (1 pill) of her dog's apoquel at 9pm. No SI/HI. Reports that she felt nauseated and vomited x2 after that. Reports mild headache. No chest pain/shortness of breath. No leg swelling. No abd pain. No urinary or bowel symptoms. She took all of her evening medications tonight. Meds: amolodipine, clonazepam QHS, jardiance, losartan Past History - Medical History Allergies/Adverse Reactions: Allergies Allergy/AdvReac Type Severity Reaction Status Date / Time No Known Allergies Allergy Verified 07/10/19 15:53 Home Medications: Ambulatory Orders Empagliflozin [Jardiance] 25 mg PO DAILY 08/29/15 Amlodipine Besylate 10 mg PO DAILY 11/08/18 Clonazepam 0.5 mg PO BID 11/08/18 Losartan Potassium 100 mg PO DAILY 11/08/18 Liraglutide [Victoza -] 1.2 mg SQ DAILY@0700 05/11/19 Phentermine HCl [Adipex-P] 37.5 mg PO DAILY 05/12/19 Anemia: No Asthma: No Cancer: Yes (breast ca right 1999) Cardiac Disorders: Yes (palpitations) CVA: No COPD: No CHF: No Dementia: No Diabetes: Yes (NIDDM) GI Disorders: No Disorders: No HTN: Yes Hypercholesterolemia: Yes Liver Disease: No Seizures: No Thyroid Disease: No - Surgical History Abdominal Surgery: Yes Appendectomy: No Cardiac Surgery: No Cholecystectomy: No Lung Surgery: No Neurologic Surgery: No Orthopedic Surgery: No - Immunization History Immunization Up to Date: Yes - Psycho-Social/Smoking History Smoking History: Never smoked Have you smoked in the past 12 months: No - Substance Abuse Hx (Audit-C & DAST Scrn) How often the patient has a drink containing alcohol: Never Score: In Men: 4 or > Positive; In Women: 3 or > Positive: 0 Screen Result (Pos requires Nsg. Audit-10AR): Negative In the last yr the pt used illegal drug/Rx for NonMed reason: No Score: Yes response is considered Positive: 0 Screen Result (Positive result requires Nsg. DAST-10): Negative Review of Systems - Review of Systems Comments:: GENERAL/CONSTITUTIONAL: No fever or chills. No weakness._ HEAD, EYES, EARS, NOSE AND THROAT: No change in vision. No change in hearing. No sore throat._ CARDIOVASCULAR: No chest pain or shortness of breath_ RESPIRATORY: Denies cough, hemoptysis_ GASTROINTESTINAL: Reports nausea and vomiting. No diarrhea or constipation._ GENITOURINARY: No dysuria, frequency, or change in urination._ MUSCULOSKELETAL: No joint or muscle swelling or pain. No neck or back pain._ SKIN: No rash_ NEUROLOGIC: Reports mild headache. No vertigo, loss of consciousness, or change in strength/sensation._ ENDOCRINE: No increased thirst. No abnormal weight change_ HEMATOLOGIC/LYMPHATIC: No anemia, easy bleeding, or history of blood clots._ ALLERGIC/IMMUNOLOGIC: No hives or skin allergy._ *Physical Exam - Vital Signs Last Vital Signs Temp Pulse Resp BP Pulse Ox 98.4 F 99 H 19 157/82 100 05/06/20 21:58 05/06/20 21:58 05/06/20 21:58 05/06/20 21:58 05/06/20 21:58 - Physical Exam GENERAL: Awake, alert, and oriented to person/place/time, in no acute distress_ HEAD: No signs of trauma, normocephalic, atraumatic _ EYES: PERRLA, EOMI, sclera anicteric, conjunctiva clear_ ENT: Hearing grossly normal, nares patent, oropharynx clear without exudates. No uvular deviation. Moist mucosa_ NECK: Normal ROM, supple, no lymphadenopathy, JVD, or masses_ LUNGS: No distress, speaks in full sentences, clear to auscultation bilaterally _ HEART: Regular rate and rhythm, normal S1 and S2, no murmurs appreciated, per ipheral pulses normal and equal bilaterally._ ABDOMEN: Soft, nontender, normoactive bowel sounds. No guarding, no rebound. No masses_ EXTREMITIES: Normal inspection, Normal range of motion, no edema. No clubbing or cyanosis_ NEUROLOGICAL: Cranial nerves II through XII grossly intact. Normal speech, normal gait, no focal sensorimotor deficits _ SKIN: Warm, Dry, normal turgor, no rashes or lesions noted_ Medical Decision Making - Medical Decision Making 64F hx of HTN HLD anxiety presenting today with accidental ingestion of 16 mg of apoquel (her dog's medication). Denies SI/HI. 05/06/20 22:59 D/w Specialist Babu at [facility] Poison Control. States that the side effects are typically a mild stomach ache. No labs or additional testing are necessary. Plan to d/c home with strict return precautions. All questions answered. Pt verbalized understanding and agreement with plan. Discharge - Discharge Information Problems reviewed: Yes Clinical Impression/Diagnosis: Ingestion, drug, inadvertent or accidental Qualifiers: Encounter type: initial encounter Qualified Code(s): T50.901A - Poisoning by unspecified drugs, medicaments and biological substances, accidental (unintentional), initial encounter Condition: Stable Disposition: HOME - Admission No - Follow up/Referral Referrals: Mavis Ervin MD [Primary Care Provider] - - Patient Discharge Instructions Patient Printed Discharge Instructions: DI for Accidental Ingestion -- Adult Additional Instructions: Please continue taking your medications as prescribed, and keep yourself well hydrated and nourished. If you experience any new, worsening, or concerning symptoms, including chest pain, shortness of breath, inability to keep down fluids, severe headache, dizziness, vision changes, or any other concerns, please return to the emergency room. - Post Discharge Activity
--- NOTE | 2020-05-06 23:07 | PDOC ---
Attending Attestation - Resident Resident Name: Valorie Garciahan - ED Attending Attestation I have performed the following: I have examined & evaluated the patient, The case was reviewed & discussed with the resident, I agree w/resident's findings & plan, Exceptions are as noted - HPI HPI: 05/06/20 23 this 64 yo female accidentally ingested her dog's Apoquel medication head ncat cvs [id number] neuro axox3,ambulatory no focal neuro deficits 05/06/20 23:08 - Physicial Exam PE: 05/06/20 23:09 wnwd 64 yo female in no acute distress head ncat abdomen no erbound, no guarding neuro axox3,ambulatory,motor strength 5/5 b/l - Medical Decision Making 05/06/20 23:07 POISON CONTROL was contacted and this pill will have no effects on humans they do not recommend ekg or any lab work Discharge - Discharge Information Problems reviewed: Yes Clinical Impression/Diagnosis: Ingestion, drug, inadvertent or accidental Qualifiers: Encounter type: initial encounter Qualified Code(s): T50.901A - Poisoning by unspecified drugs, medicaments and biological substances, accidental (unintentional), initial encounter Condition: Stable Disposition: HOME - Follow up/Referral Referrals: Mavis Ervin MD [Primary Care Provider] - - Patient Discharge Instructions Patient Printed Discharge Instructions: DI for Accidental Ingestion -- Adult Additional Instructions: Please continue taking your medications as prescribed, and keep yourself well hydrated and nourished. If you experience any new, worsening, or concerning symptoms, including chest pain, shortness of breath, inability to keep down fluids, severe headache, dizziness, vision changes, or any other concerns, please return to the emergency room. - Post Discharge Activity
== END 2020-05-06 23:20 | disposition home or self-care (01) ==
LOC: JER 21:56
DX: T50.901A Poisoning by unspecified drugs, medicaments and biological substances, accidental (unintentional), initial encounter (principal)
CPT/HCPCS: 99283-25

== ENCOUNTER 2021-09-12 08:21 | Emergency (ER) | payer OTHER ==
[2021-09-12 08:27] VITALS: BP 157/90; PULSE 96; TEMP 98.7; BMI 29.2
== END 2021-09-12 10:42 | disposition home or self-care (01) ==
LOC: JER 08:21
DX: G51.0 Bell's palsy (principal)
CPT/HCPCS: 70450-TC; 93005; 93010; 99284-25

== ENCOUNTER 2022-06-19 10:13 | Emergency (ER) | payer OTHER ==
[2022-06-19 10:18] VITALS: BP 120/72; PULSE 87; RESP 18; TEMP 97.8; BMI 27.8
[2022-06-19] MEDS ORDERED: KETOROLAC TROMETHAMINE 30 MG/1 ML VIAL IM ONE (11:47)
[2022-06-19] MEDS ORDERED: KETOROLAC TROMETHAMINE 30 MG/1 ML VIAL ONE (12:08)
== END 2022-06-19 12:25 | disposition home or self-care (01) ==
LOC: JERFT 10:13
PROC: 3E0233Z Introduction of Anti-inflammatory into Muscle, Percutaneous Approach (ICD-10-PCS; principal; 2022-06-19)
DX: M25.561 Pain in right knee (principal)
CPT/HCPCS: 73562-TC-RT-FY; 96372; 99284-25

== ENCOUNTER 2022-08-10 11:34 | Emergency (ER) | payer OTHER ==
[2022-08-10 12:02] VITALS: BP 146/86; PULSE 94; RESP 18; TEMP 97.8; BMI 29.9
[2022-08-10] MEDS ORDERED: IBUPROFEN 600 MG TABLET (FP) PO ONE ×2 (13:20→13:58)
[2022-08-10] MEDS ORDERED: guaiFENesin/D-METHORPHAN TAB.ER.12H PO ONE (13:20)
[2022-08-10 15:47] LABS: BASO % 1.2 % (0-2.0); EOS % 4.1 % (0-4.5); HEMATOCRIT 40.7 % (32.4-45.2); HEMOGLOBIN 13.9 GM/dL (10.7-15.3); LYMPH % 20.6 % (8-40); MCH 30.1 pg (25.7-33.7); MCHC 34.2 g/dl (32.0-36.0); MEAN CELL VOLUME 88.1 fl (80-96); MEAN PLT VOLUME 8.6 fl (7.5-11.1); MONO % 12.2 % (3.8-10.2); NEUT % 61.9 % (42.8-82.8); PLATELET COUNT 239 10^3/uL (134-434); RBC 4.62 M/mm3 (3.60-5.2); RDW 12.7 % (11.6-15.6); WHITE BLOOD COUNT 7.3 K/mm3 (4.0-10.0)
[2022-08-10 15:58] LABS: CALCIUM 8.7 mg/dL (8.5-10.1)
[2022-08-10 15:59] LABS: ALBUMIN 3.9 g/dl (3.4-5.0)
[2022-08-10 16:01] LABS: CREATININE 0.6 mg/dL (0.55-1.3)
[2022-08-10 16:03] LABS: BILIRUBIN,TOTAL 0.2 mg/dL (0.2-1); TOT PROT 6.8 g/dl (6.4-8.2)
== END 2022-08-10 16:06 | disposition home or self-care (01) ==
LOC: JER 11:34
DX: J06.9 Acute upper respiratory infection, unspecified (principal)
CPT/HCPCS: 0241U-QW; 36415; 71046-TC-FY; 80053; 85025; 87651; 99284-25

== ENCOUNTER → 2022-08-30 | Emergency (ER) | payer OTHER ==
[2022-08-30 11:32] VITALS: BP 126/83; PULSE 98; RESP 20; TEMP 97.8; BMI 26.6
== END ==
LOC: JER 10:54
DX: Z20.822 Contact with and (suspected) exposure to COVID-19 (principal)
CPT/HCPCS: 99281-25

== ENCOUNTER 2022-11-05 03:57 | Day surgery (SDC) | payer OTHER ==
[2022-10-31 15:05] VITALS: BMI 29.9
[2022-11-05] MEDS ORDERED: BUPIVACAINE HCL/PF 0.5% (5MG/ML) 10 ML VIAL ONE (07:50)
[2022-11-05] MEDS ORDERED: PROPOFOL 20 ML ONE ×2 (07:52→09:53)
[2022-11-05] MEDS ORDERED: MIDAZOLAM HCL 2 MG/2 ML SINGLE DOSE VIAL ONE ×2 (07:52→09:29)
[2022-11-05] MEDS ORDERED: LIDOCAINE HCL/PF 2% SDV 5ML VIAL ONE (07:52)
[2022-11-05] MEDS ORDERED: SCOPOLAMINE HYDROBROMIDE 1 PATCH PATCH.TD72 ONE (09:26)
[2022-11-05] MEDS ORDERED: ONDANSETRON 4 MG/2 ML VIAL ONE (09:29)
[2022-11-05] MEDS ORDERED: DEXAMETHASONE SOD PHOSPHATE 4 MG/1 ML VIAL ONE ×2 (09:29→09:44)
[2022-11-05] MEDS ORDERED: ceFAZolin SODIUM 1 GM VIAL IVPB ONE (09:48)
[2022-11-05] MEDS ORDERED: ceFAZolin SODIUM 1 GM VIAL ONE (09:49)
[2022-11-05] MEDS ORDERED: ONDANSETRON 4 MG/2 ML VIAL IVPUSH PRN (11:11)
[2022-11-05] MEDS ORDERED: oxyCODONE HCL 5 MG TABLET PO PRN (11:11)
[2022-11-05] MEDS ORDERED: LACTATED RINGERS SOLUTION 1,000 ML IV SCH (11:15)
[2022-11-05 11:43] VITALS: RESP 20
[2022-11-05] MEDS ORDERED: ACETAMINOPHEN 325 MG TABLET (FP) ONE (15:10)
[2022-11-05] MEDS ORDERED: ACETAMINOPHEN 325 MG TABLET (FP) PO ONE (15:24)
[2022-11-05 17:00] VITALS: BP 140/80; PULSE 80; TEMP 97
== END 2022-11-05 15:40 | disposition home or self-care (01) ==
LOC: JASU-SURG 03:57
PROVIDERS: ATTEND Orthopaedic Surgery
PROC: 0SBC4ZZ Excision of Right Knee Joint, Percutaneous Endoscopic Approach (ICD-10-PCS; principal; 2022-11-05 09:30)
DX: M23.221 Derangement of posterior horn of medial meniscus due to old tear or injury, right knee (principal)
CPT/HCPCS: 82962; 94760

== ENCOUNTER 2024-03-28 04:13 | Day surgery (SDC) | payer OTHER ==
[2024-03-18 14:31] VITALS: BMI 29.1
[2024-03-28] MEDS ORDERED: LIDOCAINE HCL/PF 2% SDV 5ML VIAL ONE (07:33)
[2024-03-28] MEDS ORDERED: FENTANYL CITRATE/PF 50 MCG/ML VIAL ONE ×3 (07:33→11:40)
[2024-03-28] MEDS ORDERED: MIDAZOLAM HCL 2 MG/2 ML SINGLE DOSE VIAL ONE (07:33)
[2024-03-28] MEDS ORDERED: PROPOFOL 20 ML ONE ×2 (07:33→10:45)
[2024-03-28] MEDS ORDERED: BUPIVACAINE HCL/PF 0.25% (2.5MG/ML) 10 ML VIAL ONE (08:29)
[2024-03-28] MEDS ORDERED: SCOPOLAMINE HYDROBROMIDE 1 PATCH PATCH.TD72 ONE (08:55)
[2024-03-28] MEDS ORDERED: ROCURONIUM BROMIDE 50 MG/5 ML SYRINGE ONE (09:02)
[2024-03-28] MEDS ORDERED: DEXAMETHASONE SOD PHOSPHATE 4 MG/1 ML VIAL ONE (09:10)
[2024-03-28] MEDS ORDERED: ONDANSETRON 4 MG/2 ML VIAL ONE ×2 (09:10→14:05)
[2024-03-28] MEDS ORDERED: ceFAZolin SODIUM 1 GM VIAL ONE (09:21)
[2024-03-28] MEDS ORDERED: PROPOFOL 40 ML ONE (09:22)
[2024-03-28] MEDS ORDERED: SUGAMMADEX SODIUM 200 MG/2 ML VIAL ONE (10:31)
[2024-03-28] MEDS ORDERED: ACETAMINOPHEN INJECTION 100 ML IVPB ONE (11:43)
[2024-03-28] MEDS: ACETAMINOPHEN 1000 MG/100 ML BAG IVPB ONE (11:46)
[2024-03-28] MEDS ORDERED: oxyCODONE HCL 5 MG TABLET PO PRN ×2 (12:06→17:17)
[2024-03-28] MEDS: ONDANSETRON 4 MG/2 ML VIAL IVPUSH PRN (14:05)
[2024-03-28] MEDS ORDERED: oxyCODONE HCL 5 MG TABLET ONE (14:23)
[2024-03-28] MEDS: oxyCODONE HCL 5 MG TABLET PO PRN (14:38)
[2024-03-28] MEDS ORDERED: METOCLOPRAMIDE HCL INJECTION 10 MG/2 ML VIAL ONE (14:45)
[2024-03-28] MEDS: METOCLOPRAMIDE HCL INJECTION 10 MG/2 ML VIAL IVPUSH ONE (14:50)
[2024-03-28] MEDS ORDERED: ONDANSETRON 4 MG/2 ML VIAL IVPUSH PRN (17:19)
[2024-03-28] MEDS: metFORMIN HCL 500 MG TABLET (FP) PO SCH (17:57)
[2024-03-29] MEDS: LACTATED RINGERS SOLUTION 1,000 ML IV SCH (04:52)
[2024-03-29 06:58] VITALS: RESP 18; TEMP 98.4
[2024-03-29] MEDS: ACETAMINOPHEN 1000 MG/100 ML BAG IVPB PRN (10:04)
[2024-03-29 14:03] VITALS: BP 150/83; PULSE 95
== END 2024-03-29 13:50 | disposition home or self-care (01) ==
LOC: JASU-SURG 04:13 → JASUSAT 04:13 → J7W 18:43 → JASUSAT 03-29 13:50
PROVIDERS: ATTEND Plastic Surgery
PROC: 0HPT0JZ Removal of Synthetic Substitute from Right Breast, Open Approach (ICD-10-PCS; principal; 2024-03-28 09:18)
PROC: 0HRT0JZ Replacement of Right Breast with Synthetic Substitute, Open Approach (ICD-10-PCS; 2024-03-28 09:18)
DX: B85.3 Phthiriasis (principal); N65.1 Disproportion of reconstructed breast; T85.44XA Capsular contracture of breast implant, initial encounter; T85.43XA Leakage of breast prosthesis and implant, initial encounter; Y82.8 Other medical devices associated with adverse incidents; Y92.9 Unspecified place or not applicable; Y83.8 Other surgical procedures as the cause of abnormal reaction of the patient, or of later complication, without mention of misadventure at the time of the procedure
CPT/HCPCS: 19342; 19371; L8600; 82962; 86850; 86900; 86901; 88300-TC; 88304-TC; 94760; C1789; J0131

== ENCOUNTER 2024-07-02 16:56 | Emergency (ER) | payer OTHER ==
[2024-07-02 17:09] VITALS: BP 131/90; PULSE 96; RESP 18; TEMP 98.6; BMI 30.7
== END 2024-07-02 19:27 | disposition home or self-care (01) ==
LOC: JERFT 16:56
DX: S83.91XA Sprain of unspecified site of right knee, initial encounter (principal); S93.401A Sprain of unspecified ligament of right ankle, initial encounter; W18.30XA Fall on same level, unspecified, initial encounter
CPT/HCPCS: 73560-TC-RT-FY; 73610-TC-RT-FY; 99284-25

== ENCOUNTER 2025-03-15 20:20 | Emergency (ER) | payer OTHER ==
[2025-03-15 20:26] VITALS: RESP 18; BMI 25.7
[2025-03-15] MEDS ORDERED: ACETAMINOPHEN 325 MG TABLET (FP) ONE (21:00)
[2025-03-15] MEDS ORDERED: LIDOCAINE 4% PATCH TP ONE (21:00)
[2025-03-15] MEDS: LIDOCAINE 4% PATCH TP ONE (21:04)
[2025-03-15] MEDS: ACETAMINOPHEN 500 MG TABLET (FP) PO ONE (21:04)
[2025-03-16] MEDS ORDERED: KETOROLAC TROMETHAMINE 30 MG/1 ML VIAL ONE (00:04)
[2025-03-16] MEDS: KETOROLAC TROMETHAMINE 30 MG/1 ML VIAL IM ONE (00:07)
[2025-03-16 00:42] VITALS: BP 125/77; PULSE 80; TEMP 97.6
[2025-03-16] MEDS ORDERED: clonazePAM 0.5 MG TABLET ONE (02:43)
[2025-03-16] MEDS: clonazePAM 0.5 MG TABLET PO ONE (02:47)
== END 2025-03-16 04:05 | disposition home or self-care (01) ==
LOC: JER 20:20
PROC: 3E0233Z Introduction of Anti-inflammatory into Muscle, Percutaneous Approach (ICD-10-PCS; principal; 2025-03-16)
DX: S82.141A Displaced bicondylar fracture of right tibia, initial encounter for closed fracture (principal); R07.89 Other chest pain; W01.0XXA Fall on same level from slipping, tripping and stumbling without subsequent striking against object, initial encounter; Y93.01 Activity, walking, marching and hiking
CPT/HCPCS: 70450-TC; 71045-TC-FY; 71250-TC; 72125-TC; 72170-TC-FY; 73562-TC-RT-FY; 73700-TC-RT; 93005; 93010; 99285-25

== ENCOUNTER 2025-03-20 15:23 | Emergency (ER) | payer OTHER ==
[2025-03-20 15:51] VITALS: RESP 19; TEMP 97.9; BMI 25.6
[2025-03-20 16:20] VITALS: BP 140/86; PULSE 96
== END 2025-03-20 16:48 | disposition home or self-care (01) ==
LOC: JER 15:23
DX: I10 Essential (primary) hypertension (principal)
CPT/HCPCS: 93005; 93010; 99283-25